=== PATIENT | male | born 1945 | race Caucasian/White ===

== ENCOUNTER 2024-07-27 10:42 | Emergency (ER) | payer OTHER ==
[2024-07-27 11:44] LABS: Absolute Eosinophils 0.3 K/uL (0-0.5); Absolute Lymphocytes (CBC) 1.7 K/uL (0.7-4.9); Absolute Monocytes 0.6 K/uL (0.1-1.3); Absolute Neutrophil 3.1 K/uL (1.8-8.0); Basophils % 0.5 % (0-1.3); Eosinophils % 5.3 % (0-4.4); Hematocrit 40.3 % (39.6-49.0); Hemoglobin 13.8 g/dL (13.6-17.9); Lymphocytes % 29.3 % (15.3-44.8); MCH 30.8 pg (27.0-35.0); MCHC 34.2 g/dL (32.0-36.0); MPV 7.8 fL (7.6-11.3); Monocytes % 10.4 % (3.3-12.3); Neutrophils % 54.5 % (41.7-73.7); Platelets 186 thou/uL (152-406); RBC Red Blood Cell Count 4.47 M/uL (4.33-5.43); Red Cell Distribution Width 13.3 % (12.1-15.2)
--- NOTE | 2024-07-27 11:46 | RAD REPORT ---
EXAM: CT brain without contrast HISTORY: Headache COMPARISON: None TECHNIQUE: Multiple contiguous axial images were obtained and a CT of the brain without contrast.. Sagittal and coronal reconstruction performed. Automated exposure control, adjustment of the mA and/or kV according to patient size, and/or iterative reconstruction. Unless otherwise specified, incidental f indings do not require dedicated imaging follow-up FINDINGS: An intracranial bleed is not seen Ventricles are normal caliber No extra-axial fluid collection noted 3.5 cm low density left occipital lobe probably old infarct. Mild low density periventricular and deep white matter probably ischemic changes secondary to small vessel disease. No fluid within the visualized sinuses or mastoids noted. IMPRESSION: No acute intracranial abnormality noted. If the patient continues to have symptoms to suggest an acute intracranial abnormality then MRI of th e brain would be recommended.
[2024-07-27 11:51] LABS: Protime INR 1.06
[2024-07-27 12:04] LABS: Albumin 3.5 g/dL (3.4-5.0); Anion Gap 9.2 mEq/L (5.0-15.0); Bilirubin Direct 0.3 mg/dL (0-0.2); Bilirubin Indirect, Calculated 0.8 mg/dL (0.2-0.8); Bilirubin Total 1.1 mg/dL (0.2-1.0); Globulin 3.6 g/dL (2.3-3.5); Magnesium 1.9 mg/dL (1.6-2.4); Potassium 4.2 mEq/L (3.5-5.1); Protein, Total 7.1 g/dL (6.4-8.2); Troponin High Sensitivity 32.7 pg/mL (<58.9)
[2024-07-27] MEDS ORDERED: AMLODIPINE 10 MG TAB ONE (12:07)
--- NOTE | 2024-07-27 12:32 | RAD REPORT ---
Procedure: Chest Single View HISTORY: Cough COMPARISON: none FINDINGS: The lungs appear clear of acute infiltrate. No significant pleural effusion noted. The heart is probably mildly enlarged. IMPRESSION: No acute abnormality is displayed.
--- NOTE | 2024-07-27 12:47 | EDPHYS ---
Physician Documentation [facility] Name: Hector Samuels Age: 78 yrs Sex: Male : 1945 Arrival Date: 07/27/2024 Time: 10:42 Bed 18 Private MD: NELLY Physician Faizan Masters HPI: 07/27 11:36 This 78 yrs old Male presents to ER via Ambulatory with complaints of High french Blood Pressure, Headache. 11:36 The patient has elevated blood pressure and discovered this at home, with a home french device. Onset: The symptoms/episode began/occurred just prior to arrival, this morning. Modifying factors: The symptoms are aggravated by activity, The symptoms are alleviated by remaining still. Associated signs and symptoms: The patient has no apparent associated signs or symptoms. Severity of symptoms: At its worst the blood pressure was moderate, in the emergency department the blood pressure is unchanged. The patient has not experienced similar symptoms in the past. Historical: - Allergies: 10:57 Morphine; iw 10:57 ambien; iw 10:57 Hydrochlorothiazide; iw - Home Meds: 10:58 Plavix 75 mg Oral tablet daily [Active]; metformin 500 mg Oral tablet daily [Active]; iw thyroid (pork) 60 mg oral tablet daily [Active]; Lipitor 40 mg Oral tablet daily [Active]; telmisartan 40 mg oral tablet daily [Active]; famotidine 20 mg Oral tablet 2 times per day [Active]; Vitamin B-12 5000 MCG Oral daily [Active]; - PMHx: 10:57 Hypertensive disorder; CVA; iw 10:58 PRE-DIABETIC; iw - PSHx: 10:58 left arm; clavicle; Cholecystectomy; back; neck; iw - Immunization history:: Adult Immunizations. - Infectious Disease History:: Denies. - Social history:: Smoking status: Patient denies any tobacco usage or history of. ROS: 11:37 Constitutional: Negative for fever, chills, and weight loss, Eyes: Negative for injury, french pain, redness, and discharge, ENT: Negative for injury, pain, and discharge, Neck: Negative for injury, pain, and swelling, Cardiovascular: Negative for chest pain, palpitations, and edema, Respiratory: Negative for shortness of breath, cough, wheezing, and pleuritic chest pain, Abdomen/GI: Negative for abdominal pain, nausea, vomiting, diarrhea, and constipation, Back: Negative for injury and pain, : Negative for injury, bleeding, discharge, and swelling, MS/Extremity: Negative for injury and deformity, Skin: Negative for injury, rash, and discoloration, Psych: Negative for depression, anxiety, suicide ideation, homicidal ideation, and hallucinations, Allergy/Immunology: Negative for hives, rash, and allergies, Endocrine: Negative for neck swelling, polydipsia, polyuria, polyphagia, and marked weight changes, Hematologic/Lymphatic: Negative for swollen nodes, abnormal bleeding, and unusual bruising, 11:37 Neuro: Positive for headache, Exam: 11:37 Constitutional: This is a well developed, well nourished patient who is awake, alert, french and in no acute distress. Head/Face: Normocephalic, atraumatic. Eyes: Pupils equal round and reactive to light, extra-ocular motions intact. Lids and lashes normal. Conjunctiva and sclera are non-icteric and not injected. Cornea within normal limits. Periorbital areas with no swelling, redness, or edema. ENT: Nares patent. No nasal discharge, no septal abnormalities noted. Tympanic membranes are normal and external auditory canals are clear. Oropharynx with no redness, swelling, or masses, exudates, or evidence of obstruction, uvula midline. Mucous membranes moist. Neck: Trachea midline, no thyromegaly or masses palpated, and no cervical lymphadenopathy. Supple, full range of motion without nuchal rigidity, or vertebral point tenderness. No Meningismus. Chest/axilla: Normal chest wall appearance and motion. Nontender with no deformity. No lesions are appreciated. Cardiovascular: Regular rate and rhythm with a normal S1 and S2. No gallops, murmurs, or rubs. Normal PMI, no JVD. No pulse deficits. Respiratory: Lungs have equal breath sounds bilaterally, clear to auscultation and percussion. No rales, rhonchi or wheezes noted. No increased work of breathing, no retractions or nasal flaring. Abdomen/GI: Soft, non-tender, with normal bowel sounds. No distension or tympany. No guarding or rebound. No evidence of tenderness throughout. Back: No spinal tenderness. No costovertebral tenderness. Full range of motion. Male : Normal genitalia with no discharge or lesions. Skin: Warm, dry with normal turgor. Normal color with no rashes, no lesions, and no evidence of cellulitis. MS/ Extremity: Pulses equal, no cyanosis. Neurovascular intact. Full, normal range of motion., bilateral aka Neuro: Awake and alert, GCS 15, oriented to person, place, time, and situation. Cranial nerves II-XII grossly intact. Motor strength 5/5 in all extremities. Sensory grossly intact. Cerebellar exam normal. Normal gait. Psych: Awake, alert, with orientation to person, place and time. Behavior, mood, and affect are within normal limits. 11:37 ECG was reviewed by the Attending Physician. Vital Signs: 10:54 BP 213 / 78; Pulse 43; Resp 16; Temp 97; Pulse Ox 97% ; Weight 93.44 kg; Height 6 ft. 0 iw in. ; Pain 3/10; 11:44 BP 193 / 82; Pulse 44; Resp 15; Pulse Ox 99% ; bp 13:06 BP 164 / 70; Pulse 44; Resp 15; Pulse Ox 99% ; bp 10:54 Body Mass Index 27.94 (93.44 kg, 182.88 cm) iw 10:54 Pain Scale: Adult iw NIH Stroke Scale Scores: 12:27 NIHSS Score: 0 french [place] Coma Score: 11:39 Eye Response: spontaneous(4). Motor Response: obeys commands(6). Verbal Response: french oriented(5). Total: 15. 11:41 Eye Response: spontaneous(4). Motor Response: obeys commands(6). Verbal Response: french oriented(5). Total: 15. MDM: 10:47 Medical Screening Exam initiated french 11:39 Differential diagnosis: cerebral abscess, cerebral vascular accident, hypertensive french crisis, Malignant HTN, CVA, intracerebral hemorrhage. Data reviewed: vital signs, nurses notes, lab test result(s), EKG, radiologic studies, CT scan, plain films. Consideration of Admission/Observation Escalation of care including admission/observation considered. Independent interpretation of the following test(s) in the Emergency Department EKG: See my EKG interpretation above. Test considered but Not performed: MRI: NO MRI BRAIN. Care significantly affected by the following chronic conditions: Diabetes, Hypertension, CVA. 11:41 ED course: GRADUAL ONSET, NOT SUDDEN , TOOK MOTRIN ... PAIN FROM A 7 TO A 3. [facility] 07/27 10:48 Order name: Basic Metabolic Panel; Complete Time: 12:08 [facility] 07/27 10:48 Order name: CBC with Diff; Complete Time: 12: [facility] 07/27 10:48 Order name: LFT's; Complete Time: 12: [facility] 07/27 10:48 Order name: Magnesium; Complete Time: 12: [facility] 07/27 10:48 Order name: NT PRO-BNP; Complete Time: 12: [facility] 07/27 10:48 Order name: PT-INR; Complete Time: 12: [facility] 07/27 10:48 Order name: Troponin HS; Complete Time: 12: [facility] 07/27 10:48 Order name: XRAY Chest (1 view); Complete Time: 12:47 [facility] 07/27 10:48 Order name: CT Head Brain wo Cont; Complete Time: 12: [facility] 07/27 10:48 Order name: Cardiac monitoring; Complete Time: 11: [facility] 07/27 10:48 Order name: EKG - Nurse/Tech; Complete Time: 11: [facility] 07/27 10:48 Order name: IV Saline Lock; Complete Time: 11:35 [facility] 07/27 10:48 Order name: Labs collected and sent; Complete Time: 11:35 [facility] 07/27 10:48 Order name: O2 Per Protocol; Complete Time: 11: [facility] 07/27 10:48 Order name: O2 Sat Monitoring; Complete Time: 11:11 [facility] EC:37 Rate is 50 beats/min. Rhythm is regular. QRS [place] is Normal. [place] interval is normal. QRS french interval is normal. QT interval is normal. No Q waves. T waves are Normal. No ST changes noted. Clinical impression: Sinus bradycardia. Interpreted by me. Reviewed by me. Administered Medications: 11:35 Drug: NS 0.9% IV 500 ml 500 ml IV at 1 bolus once; to be given as a bolus over 30 bp minutes Volume: 500 ml; Route: IV; Rate: 1 bolus; Site: right forearm; 11:45 Drug: Norvasc PO 10 mg PO once Route: PO; bp 13:06 Follow up: Response: No adverse reaction bp Disposition Summary: 07/27/24 12:47 Discharge Ordered Notes: Location: Home french Problem: new french Symptoms: have improved french Condition: Stable french Diagnosis - Headache french - Essential (primary) hypertension french - Bradycardia, unspecified french Followup: french - With: Private Physician - When: 2 - 3 days - Reason: Recheck today's complaints, Continuance of care, Re-evaluation by your physician Followup: french - With: Gary Webber MD - When: 2 - 3 days - Reason: Recheck today's complaints, Re-evaluation by your physician Discharge Instructions: - Discharge Summary Sheet french - Bradycardia, Adult french - Hypertension, Adult french - Hypertension, Adult, [id number] french - How to Take Your Blood Pressure, [id number] french - Aspirin and Your Heart french - Managing Your Hypertension french Forms: - Medication Reconciliation Form french - Antibiotic Education french - Prescription Opioid Use french - Patient Portal Instructions french - Leadership Thank You Letter french Prescriptions: - Norvasc 5 mg Oral Tablet - take 1 tablet ORAL route once daily; 20 tablet; Refills: 0, Product Selection french Permitted NIH Stroke Scale - NIH Stroke Score Date: 07/27/2024 Time: 12:27 Total Score = 0 10. Dysarthria (speech clarity - read or repeat words) - 0(Normal) 11. Extinction and Inattention (visual/tactile/auditory/spatial/personal) - 0(No abnormality) 1a. Level of Consciousness (LOC) - 0(Alert) 1b. Level of Consciousness (LOC) (Month \T\ Age) - 0(Both) 1c. LOC Commands (Open \T\ Closes Eyes/Auto Bench Mechanic) - 0(Both) 2. Best Gaze (Lateral Gaze Paresis) - 0(Normal) 3. Visual Field Loss - 0(No visual loss) 4. Facial Palsy - 0(Normal) 5a. Left Arm: Motor (10-second hold) - 0(No drift) 5b. Right Arm: Motor (10-second hold) - 0(No drift) 6a. Left Leg: Motor (5-second hold - always test supine) - 0(No drift) 6b. Right Leg: Motor (5-second hold - always test supine) - 0(No drift) 7. Limb Ataxia (finger/nose \T\ heel/tavares - test with eyes open) - 0(Absent) 8. Sensory Loss (pinprick arms/legs/face) - 0(Normal) 9. Best Language: Aphasia (description/naming/reading) - 0(No aphasia) Initials: french Signatures: Dispatcher [employer] EDMS Faizan Masters MD MD cha Williams, Irene, RN RN iw Gokul Vazquez, ALVA RN bp Corrections: (The following items were deleted from the chart) 10:49 10:49 BASIC METABOLIC PANEL+C.LAB.BRZ ordered. EDMS EDMS 10:49 10:49 CBC+H.LAB.BRZ ordered. EDMS EDMS 10:49 10:49 HEPATIC FUNCTION+C.LAB.BRZ ordered. EDMS EDMS 10:49 10:49 MAGNESIUM+C.LAB.BRZ ordered. EDMS EDMS 10:49 10:49 PROBNP+C.LAB.BRZ ordered. EDMS EDMS 10:49 10:49 PROTIME (+INR)+COAG.LAB.BRZ ordered. EDMS EDMS 10:49 10:49 Troponin High Sensitivity+C.LAB.BRZ ordered. EDMS EDMS 10:49 10:49 Urinalysis+U.LAB.BRZ ordered. EDMS EDMS 10:49 10:49 Chest Single View+RAD.RAD.BRZ ordered. EDMS EDMS 10:49 10:49 Head Brain Wo Cont+CT.RAD.BRZ ordered. EDMS EDMS
--- NOTE | 2024-07-27 12:47 | ER ---
Nurse's Notes [facility] Name: Hector Samuels Age: 78 yrs Sex: Male : 1945 Arrival Date: 07/27/2024 Time: 10:42 Bed 18 Private MD: Diagnosis: Headache;Essential (primary) hypertension;Bradycardia, unspecified Presentation: 07/27 10:54 Chief complaint: Patient states: his BP has been running high for a while, he was on iw losartan 50 mg BID and they changed him to telmesartan 40 mg daily , BP has been 220/91 at home , has been having a headache. Coronavirus screen: At this time, the client does not indicate any symptoms associated with coronavirus-19. Ebola Screen: No symptoms or risks identified at this time. Initial Sepsis Screen: Does the patient meet any 2 criteria? No. Patient's initial sepsis screen is negative. Does the patient have a suspected source of infection? No. Patient's initial sepsis screen is negative. Risk Assessment: Do you want to hurt yourself or someone else? Patient reports no desire to harm self or others. Onset of symptoms was June 2024. 10:54 Method Of Arrival: Ambulatory iw 10:54 Acuity: SANDEE 3 iw Triage Assessment: 11:00 Headache History: The patient has had previous headaches and this one is more severe bp than previous episodes. General: Appears in no apparent distress. Behavior is cooperative, appropriate for age, anxious. Pain: Complains of pain in head Pain currently is 3 out of 10 on a pain scale. Pain began gradually, Also complains of no other associated symptoms. EENT: No deficits noted. Neuro: Level of Consciousness is awake, alert, obeys commands, Oriented to Appropriate for age. Cardiovascular: Rhythm is sinus bradycardia. Respiratory: No deficits noted. GI: No signs and/or symptoms were reported involving the gastrointestinal system. : No signs and/or symptoms were reported regarding the genitourinary system. Derm: No deficits noted. Musculoskeletal: No deficits noted. Historical: - Allergies: 10:57 Morphine; iw 10:57 ambien; iw 10:57 Hydrochlorothiazide; iw - Home Meds: 10:58 Plavix 75 mg Oral tablet daily [Active]; metformin 500 mg Oral tablet daily [Active]; iw thyroid (pork) 60 mg oral tablet daily [Active]; Lipitor 40 mg Oral tablet daily [Active]; telmisartan 40 mg oral tablet daily [Active]; famotidine 20 mg Oral tablet 2 times per day [Active]; Vitamin B-12 5000 MCG Oral daily [Active]; - PMHx: 10:57 Hypertensive disorder; CVA; iw 10:58 PRE-DIABETIC; iw - PSHx: 10:58 left arm; clavicle; Cholecystectomy; back; neck; iw - Immunization history:: Adult Immunizations. - Infectious Disease History:: Denies. - Social history:: Smoking status: Patient denies any tobacco usage or history of. Screenin:00 [facility] ED Fall Risk Assessment (Adult) History of falling in the last 3 months, bp including since admission No falls in past 3 months (0 pts) Confusion or Disorientation No (0 pts) Intoxicated or Sedated No (0 pts) Impaired Gait No (0 pts) Mobility Assist Device Used No (0 pt) Altered Elimination No (0 pt) Score/Fall Risk Level 0 - 2 = Low Risk. Abuse screen: Denies threats or abuse. Denies injuries from another. Nutritional screening: No deficits noted. Tuberculosis screening: No symptoms or risk factors identified. Assessment: 11:00 General: SEE TRIAGE NOTE. bp Vital Signs: 10:54 BP 213 / 78; Pulse 43; Resp 16; Temp 97; Pulse Ox 97% ; Weight 93.44 kg; Height 6 ft. 0 iw in. ; Pain 3/10; 11:44 BP 193 / 82; Pulse 44; Resp 15; Pulse Ox 99% ; bp 13:06 BP 164 / 70; Pulse 44; Resp 15; Pulse Ox 99% ; bp 10:54 Body Mass Index 27.94 (93.44 kg, 182.88 cm) iw 10:54 Pain Scale: Adult iw [place] Coma Score: 11:39 Eye Response: spontaneous(4). Motor Response: obeys commands(6). Verbal Response: french oriented(5). Total: 15. 11:41 Eye Response: spontaneous(4). Motor Response: obeys commands(6). Verbal Response: french oriented(5). Total: 15. NIH Stroke Scale Scores: 12:27 NIHSS Score: 0 french ED Course: 10:45 Patient arrived in ED. im 10:47 Faizan Masters MD is Attending Physician. french 10:56 Triage completed. iw 11:00 Patient has correct armband on for positive identification. bp 11:01 Arm band placed on. iw 11:12 EKG done, by ED staff, reviewed by Faizan Masters MD. em1 11:18 Gokul Vazquez, RN is Primary Nurse. bp 11:23 CT Head Brain wo Cont In Process Unspecified. EDMS 11:35 Initial lab(s) drawn, by me, sent to lab. Inserted saline lock: 22 gauge in right bp forearm, using aseptic technique. Blood collected. Flushed with 10 mL NS. 12:11 XRAY Chest (1 view) In Process Unspecified. EDMS 12:47 Gary Webber MD is Referral Physician. french Administered Medications: 11:35 Drug: NS 0.9% IV 500 ml 500 ml IV at 1 bolus once; to be given as a bolus over 30 bp minutes Volume: 500 ml; Route: IV; Rate: 1 bolus; Site: right forearm; 11:45 Drug: Norvasc PO 10 mg PO once Route: PO; bp 13:06 Follow up: Response: No adverse reaction bp Medication: 11:00 VIS not applicable for this client. bp Outcome: 12:47 Discharge ordered by . french 13:43 Patient left the ED. bp NIH Stroke Scale - NIH Stroke Score Date: 07/27/2024 Time: 12:27 Total Score = 0 10. Dysarthria (speech clarity - read or repeat words) - 0(Normal) 11. Extinction and Inattention (visual/tactile/auditory/spatial/personal) - 0(No abnormality) 1a. Level of Consciousness (LOC) - 0(Alert) 1b. Level of Consciousness (LOC) (Month \T\ Age) - 0(Both) 1c. LOC Commands (Open \T\ Closes Eyes/Heel Padder) - 0(Both) 2. Best Gaze (Lateral Gaze Paresis) - 0(Normal) 3. Visual Field Loss - 0(No visual loss) 4. Facial Palsy - 0(Normal) 5a. Left Arm: Motor (10-second hold) - 0(No drift) 5b. Right Arm: Motor (10-second hold) - 0(No drift) 6a. Left Leg: Motor (5-second hold - always test supine) - 0(No drift) 6b. Right Leg: Motor (5-second hold - always test supine) - 0(No drift) 7. Limb Ataxia (finger/nose \T\ heel/tavares - test with eyes open) - 0(Absent) 8. Sensory Loss (pinprick arms/legs/face) - 0(Normal) 9. Best Language: Aphasia (description/naming/reading) - 0(No aphasia) Initials: french Signatures: Dispatcher [employer] EDFaizan Mortensen MD MD cha Williams, Irene, RN RN iw [facility] Gokul Vazquez RN RN bp Mendoza, Itzel Corrections: (The following items were deleted from the chart) 10:57 10:54 BP 213 / 78; Resp 16bpm; Temp 97F; alyx wisdom
[2024-07-27 13:48] VITALS: TEMP 97
[2024-07-27 13:50] VITALS: O2SAT 99
[2024-07-27 13:51] VITALS: BP 164/70
--- NOTE | 2024-07-28 11:58 | EKG ---
Test Date: 2024-07-27 Test Time: 11:06:30 Legal Transcriber: ANDREW MEASUREMENT RESULTS: Intervals: Rate: 50 RI: 206 QRSD: 96 QT: 450 QTc: 410 [place]: P: 71 RI: 206 QRS: 9 T: 56 INTERPRETIVE STATEMENTS: Sinus bradycardia with occasional premature ventricular complexes Otherwise normal ECG No previous ECG available for comparison Electronically Signed On 07-28-24 11:57:58 LARD MAKER by Alo Laguna
== END 2024-07-27 13:43 | disposition home or self-care (01) ==
LOC: ER 10:42
DX: R51.9 Headache, unspecified (principal); I10 Essential (primary) hypertension; R00.1 Bradycardia, unspecified; Z86.73 Personal history of transient ischemic attack (TIA), and cerebral infarction without residual deficits; Z79.01 Long term (current) use of anticoagulants
CPT/HCPCS: 36415; 70450; 71045; 80048; 80076; 83735; 83880; 84484; 85025; 85610; 93005; 99284